=== PATIENT | male | born 1935 | race Caucasian/White ===

== ENCOUNTER 2020-12-17 08:14 | Day surgery (SDC) | payer OTHER ==
[~2020-12-17] VITALS: Ht 170.2 cm; Wt 84.8 kg
[~2020-12-17 08:14] MED LIST: B-1100 M2 PO; DONE5 PO; FOLI1 PO; LEVOTHYROXINE25 MCG PO; METO50ER PO; MULTI-VITAMIN1 EAC2 PO; TAMS.4ER PO; TORS10 PO
[2020-12-17] MEDS ORDERED: Aspirin EC81 MG PO (08:35)
== END 2020-12-17 10:15 | disposition home or self-care (01) ==
LOC: ORSCSDS 08:14
PROVIDERS: Ophthalmology
PROC: 08RJ3JZ Replacement of Right Lens with Synthetic Substitute, Percutaneous Approach (ICD-10-PCS; principal; 2020-12-17 09:15)
DX: H25.11 Age-related nuclear cataract, right eye (principal); H21.81 Floppy iris syndrome; I10 Essential (primary) hypertension; I25.2 Old myocardial infarction; Z95.0 Presence of cardiac pacemaker; Z79.899 Other long term (current) drug therapy; Z87.891 Personal history of nicotine dependence
CPT/HCPCS: 82947; A9270; J2001; J2250; J3010; J3301; J7040; V2632

== ENCOUNTER → 2021-01-09 | Outpatient (CLI) | payer OTHER ==
[~2021-01-09] MED LIST changes: +Aspirin EC81 MG PO
[2021-01-09 15:27] LABS: BASOPHILS ABSOLUTE AUTO 0.03 K/mm3 (0.00-0.23); BASOPHILS PERCENT AUTO 1 % (0-2); EOSINOPHILS ABSOLUTE AUTO 0.43 K/mm3 (0.00-0.68); EOSINOPHILS PERCENT AUTO 8 % (0-6); Hematocrit 37.7 % (37.0-53.0); Hemoglobin 12.4 g/dL (13.5-17.5); IMMATURE GRAN ABSOLUTE AUTO 0.02 K/mm3 (0.00-0.10); IMMATURE GRAN PERCENT AUTO 0 % (0-1); LYMPHOCYTES PERCENT AUTO 28 % (21-46); MONOCYTES ABSOLUTE AUTO 0.36 K/mm3 (0.16-1.47); MONOCYTES PERCENT AUTO 7 % (4-13); Mean Corpuscular HGB 32.1 pg (26.0-34.0); Mean Corpuscular HGB Conc 32.9 g/dL (31.5-36.5); Mean Corpuscular Volume 98 fL (80-100); Mean Platelet Volume 10.1 fL (9.1-12.4); NEUTROPHILS ABSOLUTE AUTO 3.12 K/mm3 (1.96-9.15); NEUTROPHILS PERCENT AUTO 57 % (41-73); Platelet Count 132 K/mm3 (150-400); RDW Coefficient Variation 13.5 % (11.7-14.2); RDW Standard Deviation 48.3 fL (35.1-46.3); Red Blood Cell Count 3.86 M/mm3 (4.30-5.90); White Blood Cell Count 5.46 K/mm3 (4.00-11.30)
[2021-01-09 15:53] LABS: Alanine Aminotransfer (ALT/SGP 20 U/L (12-78); Albumin, Blood 3.8 g/dL (3.4-5.0); Albumin/Globulin Ratio 1.2 (0.8-1.8); Alk Phos 95 U/L (50-136); Anion Gap 4 mmol/L (6-16); Aspartate Aminotrans (AST/SGOT 20 U/L (12-37); Bilirubin, Total 0.6 mg/dL (0.1-1.0); Blood Urea Nitrogen 29 mg/dL (8-24); Bun/Creatinine Ratio 29.1 (12.0-20.0); CO2, Blood 30 mmol/L (21-32); Calcium, Blood 9.2 mg/dL (8.5-10.1); Chloride, Blood 106 mmol/L (98-108); Ferritin, Serum 305 ng/mL (26-388); Globulin, Blood 3.3 g/dL (2.2-4.0); Glomerular Filtration Rate >60 (60-); Glucose, Blood 89 mg/dL (70-99); Iron Serum 117 ug/dL (65-175); Phosphorus, Blood 3.2 mg/dL (2.5-4.9); Potassium, Blood 4.2 mmol/L (3.5-5.5); Sodium, Blood 140 mmol/L (136-145); Total Protein, Blood 7.1 g/dL (6.4-8.2)
[2021-01-09 15:58] LABS: Percent Saturation 32.9 % (20.0-50.0); Total Iron Binding Capacity 356 ug/dL (250-450)
== END | disposition home or self-care (01) ==
LOC: LAB 13:10 → LAB SHORT 13:10
PROVIDERS: Family Medicine
DX: I11.0 Hypertensive heart disease with heart failure (principal); I50.33 Acute on chronic diastolic (congestive) heart failure; D64.9 Anemia, unspecified; E03.9 Hypothyroidism, unspecified
CPT/HCPCS: 80053; 82728; 83540; 83550; 83880; 84100; 84443; 85025

== ENCOUNTER 2021-07-29 20:05 | Observation (INO) | payer OTHER ==
[~2021-07-29] VITALS: Ht 177.8 cm; Wt 82.2 kg
[~2021-07-29 20:05] MED LIST changes: +DECADRON6 M1 PO
[2021-07-30 01:44] LABS: BASOPHILS ABSOLUTE AUTO 0.01 K/mm3 (0.00-0.23); BASOPHILS PERCENT AUTO 0 % (0-2); EOSINOPHILS PERCENT AUTO 0 % (0-6); Hematocrit 34.1 % (37.0-53.0); Hemoglobin 12.2 g/dL (13.5-17.5); Mean Corpuscular HGB Conc 35.8 g/dL (31.5-36.5); Mean Corpuscular Volume 90 fL (80-100); Mean Platelet Volume 9.7 fL (9.1-12.4); Platelet Count 149 K/mm3 (150-400); RDW Coefficient Variation 14.8 % (11.7-14.2); RDW Standard Deviation 48.9 fL (35.1-46.3); Red Blood Cell Count 3.81 M/mm3 (4.30-5.90); White Blood Cell Count 3.74 K/mm3 (4.00-11.30)
[2021-07-30 01:48] LABS: IMMATURE GRAN ABSOLUTE AUTO 0.06 K/mm3 (0.00-0.10); IMMATURE GRAN PERCENT AUTO 2 % (0-1); LYMPHOCYTES ABSOLUTE AUTO 0.55 K/mm3 (0.84-5.20); LYMPHOCYTES PERCENT AUTO 15 % (21-46); MONOCYTES ABSOLUTE AUTO 0.21 K/mm3 (0.16-1.47); MONOCYTES PERCENT AUTO 6 % (4-13); NEUTROPHILS ABSOLUTE AUTO 2.91 K/mm3 (1.96-9.15); NEUTROPHILS PERCENT AUTO 78 % (41-73)
[2021-07-30 01:56] LABS: Alanine Aminotransfer (ALT/SGP 22 U/L (12-78); Albumin, Blood 3.1 g/dL (3.4-5.0); Alk Phos 73 U/L (50-136); Anion Gap 6 mmol/L (6-16); Aspartate Aminotrans (AST/SGOT 31 U/L (12-37); Bilirubin, Total 0.9 mg/dL (0.1-1.0); Blood Urea Nitrogen 16 mg/dL (8-24); Bun/Creatinine Ratio 26.7 (12.0-20.0); CO2, Blood 26 mmol/L (21-32); Calcium, Blood 8.1 mg/dL (8.5-10.1); Chloride, Blood 102 mmol/L (98-108); Globulin, Blood 3.1 g/dL (2.2-4.0); Glomerular Filtration Rate >60 (60-); Glucose, Blood 152 mg/dL (70-99); Sodium, Blood 134 mmol/L (136-145); Total Protein, Blood 6.2 g/dL (6.4-8.2)
--- NOTE | 2021-07-30 04:05 | NUR ---
TRANSFER REPORT FROM [facility] [employer] ON 86 YEAR OLD male with covid 19 positive status being admitted with weakness hypoxia on low flow oxygen & steroids to tx. Lives at [facility]isted Living & has supportive DTR who brought to ER earlier. Will be on tele monitor oxygen & has pacemaker AICD, HX of mild dementia & [place]. Await admission.
[2021-07-30 05:32] LABS: Source, Urine Clean Catch
[2021-07-30 05:34] LABS: Bilirubin, Urine Neg (Neg); Blood, Urine Neg (Neg); Glucose Qualitative, Urine Neg (Neg); Ketones, Urine 2+ (Neg); Leukocyte Esterase, Urine Neg (Neg); Nitrite, Urine Neg (Neg); Protein, Urine 1+ (Neg); Specific Gravity, Urine 1.005 (1.003-1.022); Urobilinogen, Urine NORM (Normal)
[2021-07-30 05:44] LABS: Appearance, Urine Clear (Clear); Color, Urine Yellow (P-Yellow)
[2021-07-30] MEDS ORDERED: DECADRON6 M1 PO (14:20)
[2021-07-30] MEDS ORDERED: ENOX40I SC (14:20)
[2021-07-30] MEDS ORDERED: VITAMIN D5000 UNIT PO (14:55)
--- NOTE | 2021-07-30 15:41 | NUR ---
CALLED REPORT TO KAITLYNN [facility]
== END 2021-07-30 15:50 ==
LOC: ER 20:05 → ERHOLD 20:06 → MEDS 07-30 04:19
PROVIDERS: ADMIT Internal Medicine
DX: U07.1 COVID-19 (principal); J12.82 Pneumonia due to coronavirus disease 2019; R09.02 Hypoxemia; F03.90 Unspecified dementia, unspecified severity, without behavioral disturbance, psychotic disturbance, mood disturbance, and anxiety; I10 Essential (primary) hypertension; I25.10 Atherosclerotic heart disease of native coronary artery without angina pectoris; I25.2 Old myocardial infarction; R41.0 Disorientation, unspecified; E03.9 Hypothyroidism, unspecified; N40.0 Benign prostatic hyperplasia without lower urinary tract symptoms; E86.0 Dehydration; Z79.82 Long term (current) use of aspirin; Z87.891 Personal history of nicotine dependence; Z95.810 Presence of automatic (implantable) cardiac defibrillator; Z88.8 Allergy status to other drugs, medicaments and biological substances
CPT/HCPCS: 36415; 71045; 80053; 83880; 84145; 84484; 85025; 93005; 93010; 96372; 96374; 99284; 99285-25; A9270; G0378; J1100; J1650; J2930; J7030

== ENCOUNTER → 2022-08-31 | Outpatient (CLI) | payer OTHER ==
[~2022-08-31] MED LIST changes: +ENOX40I SC; +VITAMIN D5000 UNIT PO
== END | disposition home or self-care (01) ==
LOC: PLD 08:09 → LAB SHORT 08:09
DX: L60.2 Onychogryphosis (principal); B35.1 Tinea unguium
CPT/HCPCS: 88305; 88312

== ENCOUNTER 2023-11-10 18:28 | Emergency (ER) | payer OTHER ==
[~2023-11-10] VITALS: Ht 172.7 cm; Wt 83.5 kg
[2023-11-10 18:32] VITALS: BP 118/78
[2023-11-10 19:12] LABS: BASOPHILS ABSOLUTE AUTO 0.03 K/mm3 (0.00-0.23); BASOPHILS PERCENT AUTO 0 % (0-2); EOSINOPHILS ABSOLUTE AUTO 0.02 K/mm3 (0.00-0.68); EOSINOPHILS PERCENT AUTO 0 % (0-6); Hematocrit 33.6 % (37.0-53.0); Hemoglobin 11.2 g/dL (13.5-17.5); IMMATURE GRAN ABSOLUTE AUTO 0.12 K/mm3 (0.00-0.10); IMMATURE GRAN PERCENT AUTO 1 % (0-1); LYMPHOCYTES ABSOLUTE AUTO 1.17 K/mm3 (0.84-5.20); LYMPHOCYTES PERCENT AUTO 11 % (21-46); MONOCYTES ABSOLUTE AUTO 1.04 K/mm3 (0.16-1.47); MONOCYTES PERCENT AUTO 10 % (4-13); Mean Corpuscular HGB Conc 33.3 g/dL (31.5-36.5); Mean Corpuscular Volume 93 fL (80-100); NEUTROPHILS PERCENT AUTO 78 % (41-73); Platelet Count 195 K/mm3 (150-400); RDW Coefficient Variation 14.7 % (11.7-14.2); RDW Standard Deviation 50.5 fL (35.1-46.3); Red Blood Cell Count 3.61 M/mm3 (4.30-5.90); White Blood Cell Count 10.78 K/mm3 (4.00-11.30)
[2023-11-10 19:31] LABS: Influenza A, PCR NEGATIVE (NEGATIVE); Influenza B, PCR NEGATIVE (NEGATIVE); Resp Syncytial Virus, PCR NEGATIVE (NEGATIVE); SARS-Cov-2 (COVID-19) PCR, MMC NEGATIVE (NEGATIVE)
[2023-11-10 19:41] LABS: Albumin, Blood 3.4 g/dL (3.4-5.0); Albumin/Globulin Ratio 0.8 (0.8-1.8); Bilirubin, Total 1.1 mg/dL (0.1-1.0); Bun/Creatinine Ratio 26.2 (12.0-20.0); Calcium, Blood 9.3 mg/dL (8.5-10.1); Creatinine, Blood 1.03 mg/dL (0.60-1.20); Globulin, Blood 4.3 g/dL (2.2-4.0); Potassium, Blood 3.8 mmol/L (3.5-5.5); Total Protein, Blood 7.7 g/dL (6.4-8.2)
== END 2023-11-10 23:29 | disposition home or self-care (01) ==
LOC: ER 18:28
PROVIDERS: Student in an Organized Health Care Education/Training Program
DX: R19.7 Diarrhea, unspecified (principal); R05.9 Cough, unspecified; I10 Essential (primary) hypertension; J44.9 Chronic obstructive pulmonary disease, unspecified; Z87.891 Personal history of nicotine dependence; Z11.52 Encounter for screening for COVID-19; Z88.8 Allergy status to other drugs, medicaments and biological substances; Z79.82 Long term (current) use of aspirin; Z79.899 Other long term (current) drug therapy; Z79.890 Hormone replacement therapy
CPT/HCPCS: 0241U; 71046; 80053; 85025; 93005; 93010; 99285-25

== ENCOUNTER 2023-11-17 15:17 | Inpatient (IN) | payer OTHER ==
[~2023-11-17] VITALS: Ht 170.2 cm; Wt 78.0 kg
[2023-11-17 16:17] LABS: BASOPHILS ABSOLUTE AUTO 0.03 K/mm3 (0.00-0.23); BASOPHILS PERCENT AUTO 0 % (0-2); EOSINOPHILS ABSOLUTE AUTO 0.05 K/mm3 (0.00-0.68); EOSINOPHILS PERCENT AUTO 0 % (0-6); Hematocrit 31.7 % (37.0-53.0); Hemoglobin 10.4 g/dL (13.5-17.5); IMMATURE GRAN PERCENT AUTO 1 % (0-1); LYMPHOCYTES ABSOLUTE AUTO 1.29 K/mm3 (0.84-5.20); LYMPHOCYTES PERCENT AUTO 9 % (21-46); MONOCYTES ABSOLUTE AUTO 1.12 K/mm3 (0.16-1.47); MONOCYTES PERCENT AUTO 8 % (4-13); Mean Corpuscular HGB 30.5 pg (26.0-34.0); Mean Corpuscular HGB Conc 32.8 g/dL (31.5-36.5); Mean Corpuscular Volume 93 fL (80-100); Mean Platelet Volume 9.1 fL (9.1-12.4); NEUTROPHILS ABSOLUTE AUTO 11.24 K/mm3 (1.96-9.15); NEUTROPHILS PERCENT AUTO 81 % (41-73); Platelet Count 283 K/mm3 (150-400); RDW Coefficient Variation 14.3 % (11.7-14.2); RDW Standard Deviation 48.9 fL (35.1-46.3); Red Blood Cell Count 3.41 M/mm3 (4.30-5.90); White Blood Cell Count 13.83 K/mm3 (4.00-11.30)
[2023-11-17 16:55] LABS: Influenza A, PCR NEGATIVE (NEGATIVE); Influenza B, PCR NEGATIVE (NEGATIVE); Resp Syncytial Virus, PCR NEGATIVE (NEGATIVE); SARS-Cov-2 (COVID-19) PCR, MMC NEGATIVE (NEGATIVE)
[2023-11-17 17:17] LABS: Albumin, Blood 2.4 g/dL (3.4-5.0); Albumin/Globulin Ratio 0.5 (0.8-1.8); Bilirubin, Total 0.9 mg/dL (0.1-1.0); Bun/Creatinine Ratio 27.2 (12.0-20.0); Calcium, Blood 8.9 mg/dL (8.5-10.1); Creatinine, Blood 0.92 mg/dL (0.60-1.20); Globulin, Blood 4.7 g/dL (2.2-4.0); Potassium, Blood 4.4 mmol/L (3.5-5.5); Total Protein, Blood 7.1 g/dL (6.4-8.2)
[2023-11-17 20:38] VITALS: BP 93/77
[2023-11-18 05:42] VITALS: BP 100/73
--- NOTE | 2023-11-18 05:59 | NUR ---
SHIFT SUMMARY IVA ARRIVED FROM THE ED AT 2029. HE WAS ALERT AND ORIENTED X 2-3, ABLE TO STAND AND PIVOT WITH 2 STAFF ASSISST. PT IS CONFUSED AND SLOW TO RESPOND, BUT ANSWERS ORIENTATION QUESTIONS ACCURATELY. SKIN CHECK PERFORMED WITH MARK LEACH, EXCORIATION IN FOLDS WITH A PENCIL ERASER SIZED PARTIAL THICKNESS SKIN BREAKDOWN ALONG GLUTEAL FOLD. NO CHANGES IN PT CONDITION THIS SHIFT, NO ACUTE EVENTS. PT RESTING IN BED AT A LOW POSITION WITH CALL LIGHT IN REACH.
[2023-11-18 07:02] LABS: Hematocrit 30.1 % (37.0-53.0); Hemoglobin 9.8 g/dL (13.5-17.5); Mean Corpuscular HGB 30.4 pg (26.0-34.0); Mean Corpuscular HGB Conc 32.6 g/dL (31.5-36.5); Mean Corpuscular Volume 94 fL (80-100); Platelet Count 265 K/mm3 (150-400); RDW Coefficient Variation 14.4 % (11.7-14.2); RDW Standard Deviation 49.1 fL (35.1-46.3); Red Blood Cell Count 3.22 M/mm3 (4.30-5.90); White Blood Cell Count 10.74 K/mm3 (4.00-11.30)
[2023-11-18 07:28] LABS: Bun/Creatinine Ratio 39.1 (12.0-20.0); Calcium, Blood 8.3 mg/dL (8.5-10.1); Creatinine, Blood 0.74 mg/dL (0.60-1.20); Potassium, Blood 4.2 mmol/L (3.5-5.5)
[2023-11-18 07:37] VITALS: BP 120/73
[2023-11-18 14:55] VITALS: BP 110/60
--- NOTE | 2023-11-18 18:28 | NUR ---
SHIFT SUMMARY: NO ACUTE EVENTS. ON ROOM AIR, BREATH SOUNDS HAVE COARSE RHONCHI THROUGHOUT. COUGH EFFORT IS VERY WEAK, BUT HE DID MANAGE TO EXPECTORATE SOME YELLOW SPUTUM THIS MORNING. FLUTTER VALVE GIVEN, BUT AGAIN EFFORT IS WEAK. ENCOURAGED PT TO SUCTION SPUTUM WITH YANKAUER. COUGHING NOTED THIS MORNING WHILE HE WAS TAKING HIS MEDS WITH WATER; SPEECH THERAPIST EVALUATED AND CHANGED DIET AND MEDICATION ADMINISTRATION ORDERS. HAS SOME DEPENDENT EDEMA IN BUE. WORKED WITH PT/OT TODAY, AMBULATED A VERY SHORT DISTANCE. PATIENT TOLD HIS DAUGHTER DONALD THAT HE WANTS TO GO HOME TOMORROW, BUT HE WILL NEED REHAB IF HE WANTS TO [facility].
[2023-11-18 20:16] VITALS: BP 144/49
[2023-11-19 03:13] VITALS: BP 127/81
--- NOTE | 2023-11-19 04:58 | NUR ---
SHIFT SUMMARY 88 YR M ADMITTED ON 11/17/23 FOR COMMUNITY AQUIRED PNEUMONIA. FULL CODE. PT SLEPT THROUGH DINNER AND WOKE UP HUNGRY SO HIS FOOD WAS WARMED AND HE ATE MOST OF HIS MEAL. PUREE DIET TOLERATED WELL. PT COUGH IS GETTING STRONGER AND HE IS ABLE TO COUGH UP PHLEGM AND USE SUCTIONING HIMSELF. FINGER MONITOR FOR BIOX WAS INEFFECTIVE SO EAR PROBE PUT ON WITH GREAT RESULTS. O2 SATS ARE IN THE 90'S. PT IS PLEASANT AND COOPERATIVE WITH CARE AND CALLS APPROPRIATELY FOR ASSISTANCE.
[2023-11-19 07:13] VITALS: BP 136/56
[2023-11-19 07:35] LABS: BASOPHILS ABSOLUTE AUTO 0.05 K/mm3 (0.00-0.23); BASOPHILS PERCENT AUTO 0 % (0-2); EOSINOPHILS ABSOLUTE AUTO 0.28 K/mm3 (0.00-0.68); EOSINOPHILS PERCENT AUTO 3 % (0-6); Hematocrit 28.9 % (37.0-53.0); Hemoglobin 9.6 g/dL (13.5-17.5); IMMATURE GRAN ABSOLUTE AUTO 0.17 K/mm3 (0.00-0.10); IMMATURE GRAN PERCENT AUTO 2 % (0-1); LYMPHOCYTES ABSOLUTE AUTO 1.98 K/mm3 (0.84-5.20); LYMPHOCYTES PERCENT AUTO 18 % (21-46); MONOCYTES PERCENT AUTO 8 % (4-13); Mean Corpuscular HGB 30.2 pg (26.0-34.0); Mean Corpuscular HGB Conc 33.2 g/dL (31.5-36.5); Mean Corpuscular Volume 91 fL (80-100); NEUTROPHILS ABSOLUTE AUTO 7.86 K/mm3 (1.96-9.15); NEUTROPHILS PERCENT AUTO 70 % (41-73); RDW Coefficient Variation 14.4 % (11.7-14.2); RDW Standard Deviation 47.8 fL (35.1-46.3); Red Blood Cell Count 3.18 M/mm3 (4.30-5.90); White Blood Cell Count 11.24 K/mm3 (4.00-11.30)
[2023-11-19 09:26] LABS: Mean Platelet Volume 9.7 fL (9.1-12.4); Platelet Count 222 K/mm3 (150-400)
[2023-11-19 09:43] LABS: Bun/Creatinine Ratio 27.9 (12.0-20.0); Calcium, Blood 8.6 mg/dL (8.5-10.1); Creatinine, Blood 0.72 mg/dL (0.60-1.20); Potassium, Blood 4.1 mmol/L (3.5-5.5)
[2023-11-19 15:17] VITALS: BP 138/54
--- NOTE | 2023-11-19 18:37 | NUR ---
NO ACUTE CHANGES,PRODUCTIVE COUGH, CLEARS CONGESTION, DAUGHTER IN VISITING. MORE ALERT AND ACTIVE TODAY, AMBULATED IN HALLS WITH PT, PATIENT STRENGTH INCREASED FEEDING SELF NOW. WILL RELAY TO PM RN
[2023-11-19 19:40] VITALS: BP 137/49
[2023-11-20 03:02] VITALS: BP 151/62
[2023-11-20 07:11] VITALS: BP 148/55
--- NOTE | 2023-11-20 07:23 | NUR ---
SHIFT SUMMARY. NO ACUTE CHANGES. PATIENT A/OX2-3. PATIENT HAS A PRODUCTIVE COUGH-USING SUCTION. DAUGHTER IN AT BEGINNING OF SHIFT. PATIENT ON RA SATTING >92%. BED IS LOCKED IN THE LOWEST POSITION WITH CALL LIGHT IN REACH.
[2023-11-20 15:55] VITALS: BP 150/58
--- NOTE | 2023-11-20 16:53 | NUR ---
NO ACUTE CHANGES, PATIENT REFUSED TO WORK WITH PT TODAY, ENCOURAGED AND EDUCATED ON THE NEED FOR PT, PATIENT CONTINUED TO REFUSE, PT HELD FOR TODAY, LS RHONCHI LOOSE PRODUCTIVE, DIET CHANGED BACK TO PUREE, INDEPEDANT WITH SUCTION BUT DOES NEED REMINDERS, SATS 96%< ON RA, CLEARING CONGESTION WITH COUGH, CALL LIGHT WITH IN REACH
[2023-11-20 19:21] VITALS: BP 136/32
[2023-11-21 03:57] VITALS: BP 152/59
[2023-11-21 05:16] LABS: BASOPHILS ABSOLUTE AUTO 0.07 K/mm3 (0.00-0.23); BASOPHILS PERCENT AUTO 1 % (0-2); EOSINOPHILS ABSOLUTE AUTO 0.22 K/mm3 (0.00-0.68); EOSINOPHILS PERCENT AUTO 3 % (0-6); Hematocrit 31.4 % (37.0-53.0); Hemoglobin 10.3 g/dL (13.5-17.5); IMMATURE GRAN ABSOLUTE AUTO 0.26 K/mm3 (0.00-0.10); IMMATURE GRAN PERCENT AUTO 4 % (0-1); LYMPHOCYTES PERCENT AUTO 22 % (21-46); MONOCYTES ABSOLUTE AUTO 0.55 K/mm3 (0.16-1.47); MONOCYTES PERCENT AUTO 8 % (4-13); Mean Corpuscular HGB 30.1 pg (26.0-34.0); Mean Corpuscular HGB Conc 32.8 g/dL (31.5-36.5); Mean Corpuscular Volume 92 fL (80-100); NEUTROPHILS ABSOLUTE AUTO 4.56 K/mm3 (1.96-9.15); NEUTROPHILS PERCENT AUTO 63 % (41-73); RDW Coefficient Variation 14.2 % (11.7-14.2); RDW Standard Deviation 47.8 fL (35.1-46.3); Red Blood Cell Count 3.42 M/mm3 (4.30-5.90); White Blood Cell Count 7.26 K/mm3 (4.00-11.30)
[2023-11-21 05:25] LABS: Mean Platelet Volume 9.3 fL (9.1-12.4); Platelet Count 302 K/mm3 (150-400)
--- NOTE | 2023-11-21 07:09 | NUR ---
REPORT RECEIVED VERIFIED A/O X 2-3 SHOWING SOME SIGNS OF CONFUSION, TRANSFERED WELL TO BSC BUT IMPULSE ON TRANSFER AND REFUSDED TO USE WALKER, WILL ENC TRANSFER WITH 2 PERSON ASSIST. PT GIVEN THIN LIQ BECAUSE WAS ASKING FOR WATER BUT PT COULD NOT SWALLOW AND BEGAN TO CHOCK. MAINTAINED O2 AT 96% YET NEEDED TO BE DEEP SUCTIONED WITH YANKAR, ONCE DEEP SUCTIONED PT SOUNDED CLEAR. QUIANA APPLE SAUCE WITH PILLS. PT CONFUSION CONT THROUGH OUT NIGHT AND DID NOT SLEEP, BUT WAS TALKING TO SELF.
[2023-11-21 08:49] VITALS: BP 158/60
[2023-11-21 15:30] VITALS: BP 141/113
--- NOTE | 2023-11-21 18:31 | NUR ---
NO ACUTE CHANGES, CONGESTION INCREASING, PATIENT NOT USING THE YANKER SUCTION INDEPENDANTLY, HOV >40 DEGREES, PATIENT ASPIRATING ON OWN SPUTUMN, ALERT AND TO SELF AND FAMILY, NOT STAFF, SITUATION, PLACE, OR TIME. LEFT ARM EDEMA, REPORTED TO DR KENYON, CALL OUT TO DAUGHTER DONALD TO FOLLOW UP WITH DR, PATIENT TALKING TO SELF IN ROOM THE MAJORITY OF THE DAY. SLEEPING ON AND OFF THROUGH OUT THE DAY, PATIENT IS UNABLE TO REDIRECT, UNABLE TO CONSOLE, OR UNDERSTAND DIRECTIONS, PATIENT FREQUENTLY EDUCATED ON SUCTION YANKER, POOR SHORT TERM MEMORY, CALL LIGHT WITH IN REACH, WILL RELAY TO PM RN
[2023-11-21 19:27] VITALS: BP 121/62
[2023-11-22 03:34] VITALS: BP 148/67
[2023-11-22 05:24] LABS: Hematocrit 28.1 % (37.0-53.0)
[2023-11-22 05:54] LABS: Bun/Creatinine Ratio 16.9 (12.0-20.0); Calcium, Blood 8.8 mg/dL (8.5-10.1); Creatinine, Blood 0.59 mg/dL (0.60-1.20); Potassium, Blood 4.2 mmol/L (3.5-5.5)
[2023-11-22 07:22] VITALS: BP 148/97
[2023-11-22 15:12] VITALS: BP 107/69
--- NOTE | 2023-11-22 18:24 | NUR ---
PATIENT CONTINUED TO BE CONFUSED AND UNDIRECTABLE, PATIENT BECOMES MORE VERBAL AGGRESSIVE AFTER 5 PM, SPEECH CLEAR BUT THEN BECOMES SO MUMBLED IT IS NONCOHERANT, SPEECH WORKED WITH PATIENT TODAY, DR MURRAY ROUNDED TODAY AND SPOKE WITH DAUGHTER DONALD TODAY, VSS, BED ALARM ON, YANKER AND CALL LIGHT WITH IN PATIENTS REACH
[2023-11-22 19:48] VITALS: BP 148/64
--- NOTE | 2023-11-23 00:38 | NUR ---
PRESSURE WOUND TO BILATERAL BUTTOCK HAVE BEEN DOCUMENTED ON BUT NO PRIOR PHOTO HAS BEEN TAKEN UNTIL 11/23. PHOTO PLACED IN CHART AND TURNING SCHEDULE ORDERED
[2023-11-23 02:10] VITALS: BP 166/67
[2023-11-23 05:44] LABS: Hematocrit 29.1 % (37.0-53.0); Hemoglobin 9.4 g/dL (13.5-17.5)
[2023-11-23 08:10] VITALS: BP 91/63
[2023-11-23 16:13] VITALS: BP 111/81
--- NOTE | 2023-11-23 17:54 | NUR ---
NO ACUTE CHANGES THIS SHIFT. PATIENT UP IN CHAIR FOR MEALS, AMBULATING IN HALLS WITH FWW AND 1 ASSIST. VSS, REMAINS ON RA. LUNGS MOIST WITH PRODUCTIVE COUGH. SUCTION AT BEDSIDE. FALL PRECAUTIONS IN PLACE. WORKED WITH PT AND ST TODAY. NECTAR THIS LIQUIDS AND MEDS WHOLE IN APPLESAUCE, PATIENT DID WELL WITH THIS TODAY.
[2023-11-23 20:17] VITALS: BP 128/89
[2023-11-24 04:00] VITALS: BP 119/59
[2023-11-24 05:01] LABS: Bun/Creatinine Ratio 15.1 (12.0-20.0); Calcium, Blood 8.7 mg/dL (8.5-10.1); Creatinine, Blood 0.66 mg/dL (0.60-1.20); Potassium, Blood 4.1 mmol/L (3.5-5.5)
[2023-11-24 05:14] LABS: Hemoglobin 8.8 g/dL (13.5-17.5)
--- NOTE | 2023-11-24 05:31 | NUR ---
SHIFT SUMMARY: IVA IS A&OX3. VSS, NO ACUTE EVENTS THIS SHIFT. CONTINUOUS PULSE OX IN PLACE, MAINTAINING SATS >90% ORA. WEAK COUGH EFFORT NOTED, SUCTION WITHIN REACH. ATTENDS IN PLACE, PT IS NOT CONTINENT OF BLADDER, NO BM THIS SHIFT. HE WAS ABLE TO SWALLOW HIS MEDICATIONS WHOLE IN APPLESAUCE WITHOUT DIFFICULTY. PT TURNED AND REPOSITIONED FREQUENTLY. HE IS LYING IN BED WITH THE CALL LIGHT IN REACH. WCTM UNTIL REPORT IS GIVEN TO DAY SHIFT RN.
[2023-11-24 07:21] VITALS: BP 122/55
[2023-11-24] MEDS ORDERED: TAMS.4ER PO (11:37)
== END 2023-11-24 16:06 | DRG 177 ==
LOC: ER 15:17 → MEDS 18:03 → ENPENDDIS 11-24 11:12 → MEDS 11-24 16:06
PROVIDERS: Emergency Medicine; Family Medicine; Nurse Practitioner Acute Care; Student in an Organized Health Care Education/Training Program; ADMIT Family Medicine
DX: J69.0 Pneumonitis due to inhalation of food and vomit (principal); J96.01 Acute respiratory failure with hypoxia; J44.0 Chronic obstructive pulmonary disease with (acute) lower respiratory infection; F03.90 Unspecified dementia, unspecified severity, without behavioral disturbance, psychotic disturbance, mood disturbance, and anxiety; E03.9 Hypothyroidism, unspecified; N40.0 Benign prostatic hyperplasia without lower urinary tract symptoms; I25.10 Atherosclerotic heart disease of native coronary artery without angina pectoris; I10 Essential (primary) hypertension; Z11.52 Encounter for screening for COVID-19; I25.2 Old myocardial infarction; Z95.0 Presence of cardiac pacemaker; Z88.8 Allergy status to other drugs, medicaments and biological substances; Z87.891 Personal history of nicotine dependence
CPT/HCPCS: 0241U; 36415; 70450; 71045; 80048; 80053; 83605; 83880; 84145; 84484; 85014; 85018; 85025; 85027; 87040; 92526; 92610; 93005; 93010; 94640; 94664; 94762; 96365; 96366; 96367; 97110; 97116; 97162; 99285-25; A9270; J0456; J0696; J1650; J7040; J7050; J7120

== ENCOUNTER → 2024-03-22 | Outpatient (CLI) | payer OTHER ==
[2024-03-22 17:57] LABS: Hematocrit 32.7 % (37.0-53.0); Hemoglobin 10.9 g/dL (13.5-17.5); Mean Corpuscular HGB 31.9 pg (26.0-34.0); Mean Corpuscular HGB Conc 33.3 g/dL (31.5-36.5); Mean Corpuscular Volume 96 fL (80-100); Mean Platelet Volume 10.2 fL (9.1-12.4); Platelet Count 182 K/mm3 (150-400); RDW Coefficient Variation 14.2 % (11.7-14.2); RDW Standard Deviation 49.5 fL (35.1-46.3); Red Blood Cell Count 3.42 M/mm3 (4.30-5.90); White Blood Cell Count 10.14 K/mm3 (4.00-11.30)
[2024-03-22 18:06] LABS: Albumin, Blood 2.9 g/dL (3.4-5.0); Albumin/Globulin Ratio 0.7 (0.8-1.8); Bilirubin, Total 1.1 mg/dL (0.1-1.0); Bun/Creatinine Ratio 27.7 (12.0-20.0); Calcium, Blood 9.4 mg/dL (8.5-10.1); Creatinine, Blood 1.01 mg/dL (0.60-1.20); Globulin, Blood 4.4 g/dL (2.2-4.0); Total Protein, Blood 7.3 g/dL (6.4-8.2)
[2024-03-22 18:23] LABS: BAND PERCENT MAN 7 % (0-8); BASOPHILS PERCENT MAN 1 % (0-2); EOSINOPHILS PERCENT MAN 1 % (0-6); LYMPHOCYTES ABSOLUTE MAN 2.12 K/mm3 (0.84-5.20); LYMPHOCYTES PERCENT MAN 21 % (21-46); MONOCYTES ABSOLUTE MAN 1.01 K/mm3 (0.16-1.47); MONOCYTES PERCENT MAN 10 % (4-13); NEUTROPHILS ABSOLUTE MAN 6.79 K/mm3 (1.96-9.15); SEG NEUTROPHILS PERCENT MAN 60 % (41-73); TOTAL CELLS COUNTED 100
== END | disposition home or self-care (01) ==
LOC: LAB SHORT 16:46 → LAB 16:46
PROVIDERS: Family Medicine
DX: J18.9 Pneumonia, unspecified organism (principal)
CPT/HCPCS: 80053; 85025

== ENCOUNTER 2025-10-28 14:01 | Inpatient (IN) | payer OTHER ==
[~2025-10-28] VITALS: Ht 165.1 cm; Wt 76.6 kg
[~2025-10-28 14:01] MED LIST changes: -DONE5 PO; +DONEPEZIL HCL10 MG PO; -LEVOTHYROXINE25 MCG PO; +LEVSOD25 PO
[2025-10-28 14:23] LABS: BASOPHILS ABSOLUTE AUTO 0.04 K/mm3 (0.00-0.23); BASOPHILS PERCENT AUTO 1 % (0-2); EOSINOPHILS ABSOLUTE AUTO 0.16 K/mm3 (0.00-0.68); EOSINOPHILS PERCENT AUTO 4 % (0-6); Hematocrit 32.0 % (37.0-53.0); Hemoglobin 10.7 g/dL (13.5-17.5); IMMATURE GRAN ABSOLUTE AUTO 0.03 K/mm3 (0.00-0.10); IMMATURE GRAN PERCENT AUTO 1 % (0-1); LYMPHOCYTES ABSOLUTE AUTO 1.29 K/mm3 (0.84-5.20); LYMPHOCYTES PERCENT AUTO 29 % (21-46); MONOCYTES ABSOLUTE AUTO 0.33 K/mm3 (0.16-1.47); MONOCYTES PERCENT AUTO 7 % (4-13); Mean Corpuscular HGB Conc 33.4 g/dL (31.5-36.5); Mean Corpuscular Volume 92 fL (80-100); NEUTROPHILS ABSOLUTE AUTO 2.64 K/mm3 (1.96-9.15); NEUTROPHILS PERCENT AUTO 59 % (41-73); NRBC ABSOLUTE 0.00 K/mm3 (0.00-0.02); NRBC Auto 0.0 /100 WBC (0.0-0.2); Platelet Count 147 K/mm3 (150-400); RDW Coefficient Variation 15.6 % (11.7-14.2); RDW Standard Deviation 52.3 fL (35.1-46.3)
[2025-10-28 14:51] LABS: Alanine Aminotransfer (ALT/SGP 20.0 U/L (12-78); Albumin, Blood 3.3 g/dL (3.4-5.0); Albumin/Globulin Ratio 0.8 (0.8-1.8); Anion Gap 11.0 mmol/L (3-11); Aspartate Aminotrans (AST/SGOT 33.0 U/L (12-37); Bilirubin, Total 0.6 mg/dL (0.1-1.0); Blood Urea Nitrogen 26.0 mg/dL (8-24); CO2, Blood 23.0 mmol/L (21-32); Calcium, Blood 9.1 mg/dL (8.5-10.1); Chloride, Blood 99.0 mmol/L (98-108); Creatinine, Blood 0.78 mg/dL (0.60-1.20); Globulin, Blood 4.1 g/dL (2.2-4.0); Glucose, Blood 97.0 mg/dL (70-99); Potassium, Blood 4.6 mmol/L (3.5-5.5); Sodium, Blood 128.0 mmol/L (136-145); Total Protein, Blood 7.4 g/dL (6.4-8.2)
[2025-10-28 15:29] LABS: CORONAVIRUS COVID-19 AG Negative (NEGATIVE)
[2025-10-28 19:04] LABS: Source, Urine Clean Catch
[2025-10-28 19:19] LABS: Bilirubin, Urine Neg (Neg); Color, Urine Yellow (P-Yellow); Glucose Qualitative, Urine Neg (Neg); Ketones, Urine Neg (Neg); Leukocyte Esterase, Urine Neg (Neg); Protein, Urine 1+ (Neg); Specific Gravity, Urine 1.015 (1.003-1.022); Urobilinogen, Urine NORM (Normal)
[2025-10-28] MEDS ORDERED: Ipratropium/Albuterol SulF 2.5-0.5MG/3 ML Amp INH PRN (22:30)
[2025-10-28] MEDS ORDERED: FLU VACC TS2025(65UP)/MF59C/PF 45 MCG/0.5 ML SYRINGE IM SCH (22:30)
[2025-10-28] MEDS ORDERED: NS 1,000 ML IV SCH (22:35)
[2025-10-28] MEDS ORDERED: Ondansetron HCl 2 MG / ML 2ML Vial IV PRN (22:35)
[2025-10-28] MEDS ORDERED: Ampicillin Sod/Sulbactam Sod 3 GM in NS 100 ML IV SCH (22:43)
[2025-10-28 23:00] LABS: Magnesium, Blood 1.9 mg/dL (1.6-2.4); Phosphorus, Blood 2.7 mg/dL (2.5-4.9)
[2025-10-28] MEDS ORDERED: Enoxaparin 40 MG/0.4 ML SYR SC SCH (23:00)
[2025-10-28 23:24] VITALS: BP 158/104
[2025-10-29] MEDS ORDERED: NS 250 ML IV PRN (00:40)
--- NOTE | 2025-10-29 02:16 | NUR ---
ADMIT NOTE PATIENT ADMITTED TO MEDICAL FLOOR. PATIENT ARRIVED VIA GURNEY AT APPROXIMATELY 2300. ALERT TO SOUND AND TOUCH, ORIENTED TO SELF ONLY. SPEECH IS MUMBLED AND DIFFICULT TO UNDERSTAND. PATIENTS BREATH SOUNDS WET UPON ARRIVAL. PATIENT WAS TRANSFERRED TO BED VIA SLIDE SHEET. HOSPITALIST WAS CALLED TO EVALUATE PATIENT DUE TO WET BREATH SOUNDS AND 2+ EDEMA ON BLE. HOSPITALIST GAVE ORDERS FOR GONZALEZ CATHETER IF TOLERATED, DEEP SUCTIONING, LASIX, AND TO HOLD OF ON FLUIDS. PATIENT ORIENTED TO ROOM AND CALL LIGHT. DAUGHTER WAS CALLED TO CONFIRM CODE STATUS. DAUGHTER REQUESTS FULL CODE AT THIS TIME UNTIL SHE CAN TALK TO HER SISTER AND STATES SHE WILL COME IN LATER TODAY. BED IN LOWEST POSITION FOR SAFETY. CALL LIGHT WITHIN REACH.
[2025-10-29 04:27] VITALS: BP 149/56
[2025-10-29] MEDS ORDERED: Atropine Sulfate 1% Opth Soln 2ML BTL SL PRN (04:30)
--- NOTE | 2025-10-29 05:07 | NUR ---
SHIFT SUMMARY PATIENT ADMITTED TO THE FLOOR AT 2300. PATIENT RESPONDS TO SOUNDS AND TOUCH, ORIENTED TO SELF. HOSPITALIST WAS CALLED TO BEDSIDE TO EVALUATE BREATHING AND EDEMA, ORDERS WERE PLACED. RESPIRATORY THERAPY PERFORMED DEEP SUCTIONING AND SPUTUM CULTURE WAS SENT TO THE LAB. PATIENTS HAS A WEAK COUGH AND LUNG SOUNDS ARE WET. PATIENT WAS PLACED ON 1.5L OF O2. SATS ARE MID TO LOW 90 S. VITALS STABLE. PATIENT HAS TELE AND IS PACED AT 64. PATIENTS SPEECH IS MUMBLED AND DIFFICULT TO UNDERSTAND. BED RAILS UP X2. BED IN LOWEST POSITION FOR SAFETY. CALL LIGHT WITHIN REACH. FREQUENT ROUNDING PERFORMED FOR SUCTIONING AND ENSURING NEEDS ARE MET.
[2025-10-29 06:13] LABS: BASOPHILS ABSOLUTE AUTO 0.03 K/mm3 (0.00-0.23); BASOPHILS PERCENT AUTO 1 % (0-2); EOSINOPHILS ABSOLUTE AUTO 0.13 K/mm3 (0.00-0.68); EOSINOPHILS PERCENT AUTO 2 % (0-6); Hematocrit 31.0 % (37.0-53.0); Hemoglobin 10.2 g/dL (13.5-17.5); IMMATURE GRAN ABSOLUTE AUTO 0.04 K/mm3 (0.00-0.10); IMMATURE GRAN PERCENT AUTO 1 % (0-1); LYMPHOCYTES ABSOLUTE AUTO 1.48 K/mm3 (0.84-5.20); LYMPHOCYTES PERCENT AUTO 24 % (21-46); MONOCYTES ABSOLUTE AUTO 0.53 K/mm3 (0.16-1.47); MONOCYTES PERCENT AUTO 9 % (4-13); Mean Corpuscular HGB Conc 32.9 g/dL (31.5-36.5); Mean Corpuscular Volume 93 fL (80-100); NEUTROPHILS ABSOLUTE AUTO 3.85 K/mm3 (1.96-9.15); NEUTROPHILS PERCENT AUTO 64 % (41-73); NRBC ABSOLUTE 0.00 K/mm3 (0.00-0.02); NRBC Auto 0.0 /100 WBC (0.0-0.2); Platelet Count 153 K/mm3 (150-400); RDW Coefficient Variation 15.6 % (11.7-14.2); RDW Standard Deviation 52.7 fL (35.1-46.3)
[2025-10-29 06:48] LABS: Alanine Aminotransfer (ALT/SGP 19.0 U/L (12-78); Albumin, Blood 3.1 g/dL (3.4-5.0); Albumin/Globulin Ratio 0.8 (0.8-1.8); Anion Gap 9.0 mmol/L (3-11); Aspartate Aminotrans (AST/SGOT 20.0 U/L (12-37); Bilirubin, Total 0.6 mg/dL (0.1-1.0); Blood Urea Nitrogen 24.0 mg/dL (8-24); CO2, Blood 28.0 mmol/L (21-32); Calcium, Blood 8.6 mg/dL (8.5-10.1); Chloride, Blood 98.0 mmol/L (98-108); Creatinine, Blood 0.85 mg/dL (0.60-1.20); Globulin, Blood 3.7 g/dL (2.2-4.0); Glucose, Blood 83.0 mg/dL (70-99); Potassium, Blood 4.2 mmol/L (3.5-5.5); Sodium, Blood 131.0 mmol/L (136-145); Thyroid Stimulating Hormone 4.0 uIU/mL (0.360-4.800); Total Protein, Blood 6.8 g/dL (6.4-8.2)
[2025-10-29 07:42] VITALS: BP 138/106
--- NOTE | 2025-10-29 09:19 | NUR ---
PALLIATIVE CARE CONSULT: CONSULT RECEIVED FOR PT FOR ADVANCED CARE PLANNING AND SYMPTOM MANAGEMENT. SPOKE TO ST AND PRIMARY CARE RN TO DISCUSS CONCERNS. PT REPORTED TO BE CONFUSED AND HAS WET COUGH. ST UNABLE TO EVAL AT THIS TIME DUE TO PT COGNITION. MEDICAL RECORD REVIEWED. NO POLST/AD ON FILE OR WITH [facility].
--- NOTE | 2025-10-29 14:20 | NUR ---
PALLIATIVE CARE VISIT: MET WITH DAUGHTER'S DONALD AND RAFAEL IN PT ROOM. PT IS AWAKE AT TIMES FOR VISIT. RAFAEL IS POA OF MEDICAL AND SHE WILL BRING DOCUMENTATION TO SUPPORT THIS. EDUCATED RAFAEL ON HER RIGHTS TO MAKE DECISIONS FOR HER DAD DUE TO HIS DIAGNOSIS OF DEMENTIA. EDUCATED ON CODE STATUS. EDUCATED ON CPR VS DNR MEASURES AND COMFORT MEASURES VS SELECTIVE TREATMENT. RAFAEL DOES NOT WANT HER DAD TO HAVE CPR. SHE CHOSE DNR, COMFORT MEASURES. PT HAS AICD PACEMAKER. EDUCATED RAFAEL OF NEED TO DE-ACTIVATE AICD. RAFAEL IS AGREEABLE TO THIS. ALSO DISCUSSED HOSPICE SERVICES. ACCORDING TO RAFAEL PT WAS EVALUATED BY [facility] LAST WEDNESDAY, BUT DECISION WAS MADE NOT TO ADMIT TO SERVICE DUE TO PT STATING HE WOULD WANT TO GO TO THE HOSPITAL IF HE HAD A HEART ATTACK. WE DISCUSSED RIGHT TO BE ON HOSPICE AND ABLE TO MAKE THOSE DECISIONS IF IT HAPPENS AND REVOKING HOSPICE SERVICES ONLY IN THE EVENT THAT OCCURS. RAFAEL WOULD LIKE TO HAVE PT ON HOSPICE SERVICES. ALSO DISCUSSED COMFORT MEASURES VS OPTIMIZING PT AND SENDING HOME WITH SAME DAY HOSPICE ADMISSION. EDUCATED RAFAEL ON SWALLOW EVAL AND NEED FOR BARRIUM SWALLOW EVAL. RAFAEL STATED SHE WOULD WANT HIM TO EAT AND DRINK FLUIDS DESPITE WHAT THE BARRIUM SWALLOW RESULTS WOULD BE. RISKS OF PEG TUBE VS CONTINUING EATING AND DRINKING WERE DISCUSSED. RAFAEL STATES SHE WOULD PREFER PT NOT GET A PEG TUBE AND SHE ACCEPTS THE RISKS ASSOCIATED WITH EATING AND DRINKING. RAFAEL AND DONALD REQUESTED SOME TIME TO DISCUSS OPTIONS ALONE. THEY ARE AGREEABLE TO CHANGING CODE STATUS NOW. COMPETED POL WITH RAFAEL. CALLED DR. SPENCER AND UPDATED HIM. ORDER FOR DNR OBTAINED AND PLACED. NOTIFIED PRIMARY RN.
[2025-10-29 15:10] VITALS: BP 136/65
--- NOTE | 2025-10-29 16:10 | NUR ---
PALLIATIVE CARE CONFERENCE: DAUGHTERS RAFAEL BENNETT AND SHANNON WETZEL PRESENT FOR CARE CONFERENCE. PT, DR. SPENCER AND THIS BATT MACHINE OPERATOR PRESENT. DR. SPENCER DISCUSSED COMFORT CARE VS CONTINUED TREATMENT. PT WAS AWAKE DURING CONVERSATION BUT DID NOT PROVIDE FEEDBACK. FAMILY ARE AGREEABLE TO COMFORT CARE WITH GOAL TO RETURN TO HOME WITH HOSPICE AT [facility]. PT WANTS TO EAT AND DRINK. DR. SPENCER AGREES TO DIET ORDER FOR MINCED AND MOIST AND TO ADVANCE DIET TOLERATED FOR COMFORT EATING PURPOSES. PRECAUTIONS ADDED, PT TO BE ASSISTED WITH MEALS DUE TO FAMILY REPORTING PT "SHOVELS" HIS FOOD IN, ALSO PT TO BE UP 90 DEGREES FOR MEALS AND MEAL TO BE HELD IF SEDATED. THERE IS A NATIONAL SHORTAGE OF ROXANOL. ORAL IMMEDIATE RELEASE TABS ORDERED AND CAN BE CRUSHED. PT IS NARCOTIC NAIVE SO MORPHINE SULFATE 5 MG Q4 PRN ORDERED. PT HAS CONTINUOUS ORAL SECRETIONS. ORDERED SCOPOLAMINE PATCH AND ATROPINE DROPS. PT HAS REPORTED SYMPTOMS OF AGITATION AND HAS BEEN COMBATIVE WITH CARES AT TIMES. LORAZEPAM ORDERED FOR S/S OF AGITATION, SLEEP. PT TO CONTINUE IV ANTIBIOTICS TO OPTIMIZE AND IMPROVE RESPIRATORY SYSTEM SO PT CAN DISCHARGE HOME. FAMILY EDUCATED ON RISKS OF ASPIRATION. FAMILY V/U. IN EVENT PT ASPIRATES DUE TO COMFORT EATING WILL RE-EVALUATE AT THAT TIME. UPDATED CM, PRIMARY RN. ORDERS PLACED PER DR. BARNARD DISCUSSION AND ORDERS.
--- NOTE | 2025-10-29 18:36 | NUR ---
ASSUMED CARE OF PT PT SLEEPING HEAVELY AND NOT RESPONDING TO VERBAL STIM BUT DID RESPOND TO PAINFUL STIM. PT THRASHED AROUND BUT WOULD STILL NOT WAKE UP. VSS, VERY WET LUNG SOUNDS AND GURRGLING. PT WAS DEEP SUCTIONED WITH SOME OUTPUT OF THIS CLR MUCUS. RT NOTIFIED WELL SPEAKING WITH PALLIATIVE CARE.
--- NOTE | 2025-10-29 18:40 | NUR ---
GRAND DAUGHTER AT BEDSIDE GRANDDAUGHTER AT BEDSIDE SIDED STATED THAT THIS WAS NORMAL FOR PT AND HE USALLY DIDNT WAKE UNTIL 10AM. PT WOULD NOT WAKE UP WHEN SPEAKINTG WITH HIM BUT WOKE FOR DR SPENCER WHO ENTERED THAT ROOM. PT OPENED EYES AND WAS ABLEOT MUMBLE YES OR NO. TALKS REGARDING PALLIATIVE CARE WITH GRAND DAUGHTER STARTED. NOW WAITING DAUGHRTER.
--- NOTE | 2025-10-29 18:42 | NUR ---
CARE TEAM WITH FAMILY CARE TEAM SPOKE WITH FAMILY. AND PT FINALLY MADE COMFORT CARE. FAMILY AT BEDSIDE. PT IS WAKE AND ALERT AND REQUESTING FOOD. PT SAT UP AT 90 DEGRESS AND FED. PT QUIANA EATING WELL AND SHOWED HE HAD A VERY GOOD APPETITE.
--- NOTE | 2025-10-30 04:05 | NUR ---
PAINT AND TABLE EDGER SUMMARY PT ON COMFORT CARE, WITH IVF AND IV ANTIBIOTICS INFUSING. HOB ELEVATED AND O2 PER NC FOR COMFORT. AWAKE AT INTERVALS. REPOSITIONED INTERMITTENTLY AND CHANGED NEEDED FOR COMFORT. INTERMITTENT SUCTIONING PT HAVING SOME CONGESTED COUGHING HE SLEEPS. CALL LIGHT IN REACH, RAILS UP X 2 AND BED IN LOW POSITION FOR SAFETY. WILL CONT TO MONITOR.
[2025-10-30] MEDS ORDERED: Amoxicillin/Clavulanate K 250 MG/5 ML UD (5 ML) PO SCH (09:00)
[2025-10-30] MEDS ORDERED: Ampicillin Sod/Sulbactam Sod 3 GM in NS 100 ML IV SCH (12:00)
--- NOTE | 2025-10-30 15:27 | NUR ---
NOTE FAMILY HELPING PT EAT CHOCOLATE PUDDING. PT HAS A WET CONGESTED COUGH. ORAL SUCTION AT BEDSIDE. CARE ONGOING.
--- NOTE | 2025-10-30 16:16 | NUR ---
Spiritual care visit conducted. The patient is lying in bed and alert. He is restless moving his arms and head continuously. I introduce myself and he gives me eye contact but does not speak. I explain that based on the fact that he is listed as Spiritism in patient information and that I received a referral for him that I would like to say a prayer for him. His eyes seem to light up and so I took that as affirmation. I, then, gladly supplied a prayer. The patient seemed to slow his movement down and took some very slow blinks of his eyes. I will continue to remain at the patient and family.
--- NOTE | 2025-10-30 17:21 | NUR ---
NOTE COMFORT CARE FAMILY HERE FOR THE AFTERNOON. PT AWAKE AND SMILING WITH FAMILY. VIDEO CALL TO PT BROTHER. ATIVAN GIVEN X1 PER FAMILY REQUEST TO SEE IF IT WOULD HELP WITHT HE JERKS HE HAS. PT WITH A DEEP, WET CONGESTED COUGH. REPOSITIONED FOR COMFORT AND SKIN PROTECTION. GONZALEZ EMPTIED. URINE COLON COLORED. NO CLOTS. 400ML OUT. ANTIBIOTICS GIVEN PER ORDER. ORAL CARE DONE. HOB 30 DEGREES FOR ASPIRATION PRECAUTIONS. COMFORT CART RESTOCKED.
--- NOTE | 2025-10-30 18:16 | NUR ---
PALLIATIVE CARE VISIT: MET WITH PT/FAMILY THIS MORNING. FAMILY CHOSE [facility] FOR HOSPICE SERVICE. AICD/PACEMAKER DOCUMENT REQUESTED FROM [facility] AND RECEIVED VIA FAX. PT HAS HAYLEYIFY NAHUN FARRELL . VERIFIED WITH [facility] AICD CAN BE DE-ACTIVATED. THEY CAN DO THIS TOMORROW MORNING. PLAN WILL BE FOR PT TO DC TOMORROW AFTER AICD DE-ACTIVATED. [facility] TO ADMIT TOMORROW. UPDATED CM, PRIMARY RN, MD ON POC.
--- NOTE | 2025-10-30 18:32 | NUR ---
LILIANA COMPLETED. PT DNR, COMFORT MEASURES PER DAUGHTER RAFAEL'S CHOICE. SHE IS POA. COPY PLACED IN CHART. ORIGINAL SENT WITH RAFAEL. FAXED COPY TO [facility].
--- NOTE | 2025-10-31 08:07 | NUR ---
SHIFT SUMMARY; PATIENT ALIVE THRU THE NIGHT, ATROPINE SEEMED TO DRY UP SECRETIONS WELL, DID NOT HAVE TO SUCTION EVER. IV LEAKING AT 0600 DOSE OF ABX. FAMILY GOINE FOR THE NIGHT.
--- NOTE | 2025-10-31 11:04 | NUR ---
The patient is lying in bed and much more relaxed than my last visit. The patient's dtr's, Irlanda and Belkys, are bedside and express their anticipatory grief, their strong Lutheran beliefs and their concerns over the patient's suffering. I provided therapeutic listening, gentle admitting counselor and prayer. The patient and his dtr's responded well and showed signs of being comforted.
--- NOTE | 2025-10-31 12:17 | NUR ---
[facility] NURSE CAME BY AT SHIFT CHANGE THIS AM TO DEACTIVATE DEFIBRILLATRO.
[2025-10-31] MEDS ORDERED: ATROPINE SULFATE2 M1 SL (17:00)
[2025-10-31] MEDS ORDERED: LORA.5 PO (17:01)
[2025-10-31] MEDS ORDERED: MORPHINE 44 MG/1 ML PO (17:02)
[2025-10-31] MEDS ORDERED: TRANSDERM-SCOP1 EA10 TD (17:02)
[2025-10-31] MEDS ORDERED: ONDA4ODT MM (17:03)
--- NOTE | 2025-10-31 17:06 | NUR ---
DISCHARGE NOTE PT DISCHARGED HOME ON HOSPICE. [facility] RIDE ARRANGED AND HOSPICE TO MEET PT AND FAMILY AT HOME FOR ADMIT. NO IV TO REMOVE AT TIME OF DISCHARGE. GONZALEZ PATENT AND FLOWING TO GRAVITY, PT DC'D WITH GONZALEZ. FAMILY AT BEDSIDE AT TIME OF PICKUP. NO QUESTIONS OR CONCERNS FROM FAMILY AT TIME OF DISCHARGE.
== END 2025-10-31 16:55 | disposition hospice, home (50) | DRG 177 ==
LOC: ER 14:01 → MEDS 14:02
PROVIDERS: Physician Assistant; ADMIT Internal Medicine
PROC: 3E03329 Introduction of Other Anti-infective into Peripheral Vein, Percutaneous Approach (ICD-10-PCS; principal; 2025-10-28)
PROC: 0T9B70Z Drainage of Bladder with Drainage Device, Via Natural or Artificial Opening (ICD-10-PCS; 2025-10-28)
DX: J69.0 Pneumonitis due to inhalation of food and vomit (principal); G92.8 Other toxic encephalopathy; J96.01 Acute respiratory failure with hypoxia; E87.1 Hypo-osmolality and hyponatremia; F03.90 Unspecified dementia, unspecified severity, without behavioral disturbance, psychotic disturbance, mood disturbance, and anxiety; Z51.5 Encounter for palliative care; Z66 Do not resuscitate; J44.9 Chronic obstructive pulmonary disease, unspecified; E03.9 Hypothyroidism, unspecified; I10 Essential (primary) hypertension; N40.0 Benign prostatic hyperplasia without lower urinary tract symptoms; D64.9 Anemia, unspecified; Z95.810 Presence of automatic (implantable) cardiac defibrillator; Z88.8 Allergy status to other drugs, medicaments and biological substances; Z79.82 Long term (current) use of aspirin; Z87.891 Personal history of nicotine dependence; Z79.890 Hormone replacement therapy
CPT/HCPCS: 31720; 36415; 51701; 51702; 71045; 80053; 83735; 83880; 84100; 84439; 84443; 84484; 85025; 87070; 87428-QW; 92610; 93005; 93010; 94760; 96360; 96361; 96372; 96374; 96375; 96376; 97161; 97530; 99285-25; A9270; G0378; J0295; J1650; J1938; J7050; J7120